=== PATIENT | female | born 1965 | race Hispanic/Latino ===

== ENCOUNTER 2018-10-29 09:17 | Outpatient (CLI) | payer OTHER ==
--- NOTE | 2018-10-30 09:28 | MMO ---
BILATERAL DIGITAL SCREENING MAMMOGRAMS: History: 53-year-old female presents for baseline digital screening mammography. No prior mammograms available for comparison. FINDINGS: Scattered fibroglandular changes are noted bilaterally. There is an occasional typically benign calci fication. There are some bilateral parenchymal density asymmetries. IMPRESSION: BIRADS category 2 - benign findings. Continue routine screening. POS: [facility]
== END 2018-10-29 09:18 | disposition home or self-care (01) ==
LOC: SCSMAMMO 09:17
PROVIDERS: ATTEND Family Medicine
DX: Z12.31 Encounter for screening mammogram for malignant neoplasm of breast (principal)
CPT/HCPCS: 77067

== ENCOUNTER 2018-11-18 17:37 | Inpatient (IN) | payer OTHER ==
[~2018-11-18 17:37] MED LIST: Iopamidol 370 76% 100 ML VIAL ONE
[2018-11-18] MEDS ORDERED: Morphine 4 MG/ML VIAL ONE (18:11)
[2018-11-18] MEDS ORDERED: Ondansetron PF 4 MG/2 ML Vial ONE (18:11)
[2018-11-18] MEDS ORDERED: diphenhydrAMINE 50 MG/ML VIAL ONE (18:24)
[2018-11-18 18:29] LABS: Pregnancy Test - Urine (BHCG) Negative (Negative)
[2018-11-18 18:30] LABS: Pregu Control Background? CLEAR/WHITE (CLR/WHITE); Pregu Control Bar Appear? YES (CONTROL BAR)
[2018-11-18 18:37] LABS: Bilirubin Small (Negative); Blood, Urine Negative (Negative); Clarity CLEAR (Clear); Glucose, Urine (Dipstick) Negative (Negative); Leukocyte Trace (Negative); Nitrite Negative (Negative); Protein, Urine (Dipstick) Negative (Neg-Trace); Specific Gravity, Urine 1.011 (1.002-1.036); pH, Urine 6.5 (5.0-9.0)
[2018-11-18 18:41] LABS: Hemoglobin 12.8 g/dL (12.0-16.0); Mean Corpuscular Volume 78.2 fL (78.0-98.0); Mean Platelet Volume 9.2 fL (7.4-10.4); Platelet Count 232 thou/uL (130-400); RBC Distribution Width 14.5 % (11.5-14.5); Red Blood Cell (RBC) Count 5.12 mill/uL (4.20-5.40); White Blood Cell (WBC) Count 7.6 thou/uL (4.8-10.8)
[2018-11-18 18:47] LABS: Band 36 % (5-11); Lymphocytes 7 % (21-51); MDiff Complete? YES; Metamyelocyte 1 % (0-0); Neutrophil 56 % (42-75); PLT Morphology Comment Appears Adequate; RBC Morphology Normal
[2018-11-18 18:51] LABS: ALT (SGPT) 19 U/L (8-55); Albumin 4.4 g/dL (3.5-5.0); Alkaline Phosphatase 91 U/L (40-150); BUN (Urea Nitrogen) 16 mg/dL (9.8-20.1); Bilirubin, Total 0.7 mg/dL (0.2-1.2); Calc. Creatinine Clearance 0 mL/min (70-130); Calcium 10.1 mg/dL (7.8-10.44); Carbon Dioxide 23 mmol/L (22-29); Chloride 98 mmol/L (98-107); Estimated GFR-MDRD 65; Glucose 108 mg/dL (70-105); Lipase 29 U/L (8-78); Sodium 133 mmol/L (136-145)
[2018-11-18 18:59] LABS: Bacteria/HPF 3+ HPF (None Seen); Hyaline Casts/LPF 0-3 HYALINE CAST LPF (0-3 Hyaline); Squamous Epithelial None Seen HPF (0-3); WBC/HPF 0-3 HPF (0-3)
[2018-11-18 19:09] LABS: RBC/HPF None Seen HPF (0-3)
--- NOTE | 2018-11-18 19:13 | CT ---
CT OF THE ABDOMEN AND PELVIS WITH IV CONTRAST 11/18/18 PROVIDED CLINICAL HISTORY: Abdominal pain. FINDINGS: No comparisons. The visualized lung bases are free of significant opacity. The liver, spleen, pancreas, kidneys and adrenal glands demonstrate no acute abnormality. There is co rtical volume loss involving the posterior aspect of the left kidney superiorly compatible with seque la of prior insults. Changes of cholecystectomy are seen. there is prominence of the intrahepatic and extrahepatic biliary system. There is conspicuous retained colonic fecal material and colonic gas present throughout the colon to the level of suture material at the region of the rectosigmoid junction. There is abrupt caliber otoole ge at the level of the suture line. Stool and gas are seen distal to the suture line. There is no sma ll bowel dilatation. There are occasional curvilinear areas of lucency that approximate the colon wal l but are felt to represent air trapped between stool and the bowel wall rather than pneumatosis. The re is no evidence for free intraperitoneal air. There is no evidence for portal venous gas. Vascular calcifications are seen. The osseous structures demonstrate no concerning lytic or blastic l esions. The lower lumbar spine degenerative changes are seen along with bilateral L5 pars defects. IMPRESSION: 1. Findings compatible with partial obstruction at the level of the rectosigmoid anastomosis, th e chronicity of which is not certain. 2. Intrahepatic and extrahepatic biliary ductal dilatation which may be on the basis of patient post cholecystectomy status. Correlation with laboratory values to exclude biliary obstructive change recommended. POS: [facility]
[2018-11-18 19:39] LABS: Anion Gap 17 mmol/L (10-20); Globulin 3.3 g/dL (2.4-3.5); Potassium 4.6 mmol/L (3.5-5.1); Protein, Total 7.7 g/dL (6.0-8.3)
[2018-11-18 19:40] LABS: AST (SGOT) 44 U/L (5-34)
[2018-11-18 21:08] VITALS: BMI 28.8
[2018-11-18] MEDS ORDERED: Ondansetron ODT 4 MG TAB SL PRN (21:08)
[2018-11-18] MEDS ORDERED: Ondansetron PF 4 MG/2 ML Vial IVP PRN ×2 (21:08→22:11)
[2018-11-18] MEDS ORDERED: Dextrose 5 % And 0.9 % NaCl 1,000 ML IV SCH (21:15)
[2018-11-18] MEDS ORDERED: Ondansetron ODT 4 MG TAB PO PRN (22:12)
[2018-11-18] MEDS ORDERED: Enoxaparin Sodium 40 MG/0.4 ML SYRINGE SC SCH (22:15)
[2018-11-18] MEDS ORDERED: Pantoprazole 40 MG VIAL IVP SCH (22:15)
[2018-11-18] MEDS: Ketorolac Tromethamine 30 MG/ML VIAL IVP PRN (22:51)
[2018-11-18] MEDS: Acetaminophen 1,000 MG in Premix Bag 1 BAG IVPB PRN (23:18)
[2018-11-19] MEDS ORDERED: Lactated Ringer's 1,000 ML IV SCH ×2 (04:00→05:00)
[2018-11-19] MEDS: Acetaminophen 1,000 MG in Premix Bag 1 BAG IVPB PRN (06:18)
[2018-11-19] MEDS: Ketorolac Tromethamine 30 MG/ML VIAL IVP PRN ×2 (06:18→15:57)
[2018-11-19] MEDS ORDERED: Fleet Enema 133 ML BOT PR SCH (07:30)
[2018-11-19] MEDS ORDERED: GoLYTELY 4,000 ml Bottle PO SCH (07:30)
--- NOTE | 2018-11-19 08:24 | RAD ---
CHEST ONE VIEW: ABDOMEN TWO VIEWS: HISTORY: A 53-year-old female with a history of large bowel obstruction. Follow up abdominal pain and vomitin g. FINDINGS: CHEST: No significant acute process in the chest. ABDOMEN: There is some residual contrast in the bladder from previous IV contrast for prior CT. The colon is much less distended than on the 11/18/2018 CT. There are postoperative changes in the left lower quadrant and in the right mid abdomen and right upper quadrant cholecystectomy changes. IMPRESSION: 1. Markedly less distended colon than on the prior CT. 2. No evidence of large or small bowel obstruction or other acute process. 3. Postoperative changes. POS: [facility]
[2018-11-19] MEDS ORDERED: Pantoprazole 40 MG VIAL IVP SCH (09:00)
[2018-11-19] MEDS: Sodium Chloride 0.9% 1,000 ML IV SCH ×2 (09:07→15:57)
--- NOTE | 2018-11-19 11:28 | HP ---
HISTORY OF PRESENT ILLNESS: Tayler Ramsay is a 53-year-old female, incarcerated for 19 months. Her home is in [place]. She has been in [place] for several months prior to being transferred to the [facility] for the last 3 months. While in [place], she experienced abdominal pain, distention, colonic obstruction, and underwent a colonoscopy revealing inability to pass the scope beyond the distal colon. Eight months ago, she underwent laparotomy, left colon resection for benign disease, nonmalignant, with colorectal anastomosis. She states that after the operation, she was having normal bowel movements and feeling well until yesterday when she experienced central abdominal pain. She presented to the emergency room. CAT scan of the abdomen and pelvis revealed a distended proximal colon to the colorectal anastomosis with stool in the proximal colon, but she does have stool and air distal to the colorectal anastomosis. The patient states her bowel function was normal prior to that. She states her blood pressure normally runs in the 90s to low 100s. She is on atenolol, lisinopril, and amlodipine. ALLERGIES: NONE. SOCIAL HISTORY: Tobacco, never; even prior to incarceration, never. Alcohol, none; even no drugs or alcohol prior to incarceration. PAST MEDICAL HISTORY: Hypertension, depression, and elevated cholesterol. PAST SURGICAL HISTORY: Sigmoid colon resection for benign disease, probably diverticular stricture. REVIEW OF SYSTEMS: Ten-point, noncontributory. FAMILY HISTORY: Noncontributory. PHYSICAL EXAMINATION: VITAL SIGNS: Height 5 feet 3 inches, weight 162 pounds, and BMI 28. Temperature 98.3, pulse 64, respiratory rate 19, and blood pressure 98/52. HEAD, EARS, EYES, NOSE, AND THROAT: Unremarkable. LUNGS: Clear to auscultation. CARDIAC: Regular rate and rhythm without murmur or gallop. ABDOMEN: Soft. Well-healed midline scar. No hernias. She does not seem to be tympanitic. She is not tender. EXTREMITIES: Unremarkable. LABORATORY DATA: White count 7, hemoglobin 12. Renal function, normal. Sodium 133, potassium 4.6. Liver function tests, normal. Review of her CAT scan reveals the above findings. ASSESSMENT AND PLAN: Constipation, possible colorectal anastomotic stricture, but there are stool and gas in the rectum, and she did pass stool yesterday. We would recommend enemas MUNIR this morning, magnesium citrate p.o., GI consultation, and repeat colonoscopy. We will await these results. I doubt operative intervention will be necessary. Job ID: [id number]
[2018-11-19] MEDS ORDERED: PROPOFOL 40 ML ONE (21:02)
[2018-11-19] MEDS ORDERED: Lidocaine 1% PF 5 ML VIAL ONE (21:38)
[2018-11-19] MEDS: Enoxaparin Sodium 40 MG/0.4 ML SYRINGE SC SCH (21:40)
--- NOTE | 2018-11-20 00:25 | CON ---
DATE OF CONSULTATION: HISTORY OF PRESENT ILLNESS: The patient is a 53-year-old female prisoner, who 8 months ago underwent a colon resection for benign disease. She reports she had a narrowing of her colon and it was removed. She had no symptoms after this until yesterday when she developed some left-sided abdominal pain. She denies any weight loss, any melena, hematochezia, or any other complaints. PAST MEDICAL HISTORY: Significant for hypertension. PAST SURGICAL HISTORY: Includes colon resection. ALLERGIES: NO KNOWN MEDICAL ALLERGIES. MEDICATIONS: 1. Tenormin 50 mg p.o. b.i.d. 2. Potassium chloride 10 mEq p.o. daily. 3. Omeprazole 40 mg p.o. daily. 4. Zestril 10 mg p.o. daily. 5. Hydrochlorothiazide 25 mg p.o. daily. 6. Prozac 20 mg p.o. daily. 7. Lipitor 10 mg p.o. daily. 8. Norvasc 10 mg p.o. daily. FAMILY HISTORY: Negative. REVIEW OF SYSTEMS: Ten-systems were reviewed and were negative except for above. PHYSICAL EXAMINATION: GENERAL: Shows a well-developed, well-nourished female, in no acute distress. VITAL SIGNS: Temperature is 99.0, pulse 67, respiratory rate 16, blood pressure 117/77. HEENT: Unremarkable. NECK: Supple. CHEST: Clear. CARDIOVASCULAR: Regular rate and rhythm. ABDOMEN: Soft, nontender without organomegaly or masses. Bowel sounds are present and normoactive. RECTAL: Deferred. EXTREMITIES: Normal. NEUROLOGIC: Nonfocal. LABORATORY DATA: Shows essentially normal CBC except for 36% bands. Chemistry shows sodium 133, glucose 108, AST 44. Abdominal pelvic CT shows findings compatible with partial obstruction at the level of the rectosigmoid anastomosis. Intrahepatic and extrahepatic biliary ductal dilatation. RECOMMENDATIONS: Colonoscopy with possible dilatation of anastomotic stricture. Job ID: [id number]
[2018-11-20] MEDS: Acetaminophen 1,000 MG in Premix Bag 1 BAG IVPB PRN (00:41)
[2018-11-20] MEDS: Sodium Chloride 0.9% 1,000 ML IV SCH ×2 (00:53→06:19)
--- NOTE | 2018-11-20 01:29 | OP ---
DATE OF PROCEDURE: 11/19/2018 PREOPERATIVE DIAGNOSIS: Colon obstruction. DESCRIPTION OF PROCEDURE: After informed consent was obtained, forward-viewing endoscope was inserted in the rectum after perianal inspection and rectal exam were normal. The anastomotic site was found. It was somewhat difficult and it represented a pinhole. The balloon was inserted into the pinhole orifice and dilated to 10 mm for 2 minutes. Balloon was then removed. A second balloon was used to 12 mm and eventually, a third balloon was used to 15 mm. The scope could not be passed through the orifice, but the orifice was much bigger and the lumen on the proximal side of the stricture could be seen. No abnormalities. No signs of any growth or malignancy was noted. ASSESSMENT: Anastomotic stricture-status post dilatation to 15 mm. RECOMMENDATIONS: 1. Begin full liquid diet. 2. Monitor progress. Job ID: [id number]
[2018-11-20] MEDS: Ketorolac Tromethamine 30 MG/ML VIAL IVP PRN (02:02)
--- NOTE | 2018-11-20 11:59 | PRG ---
DATE OF SERVICE: SUBJECTIVE: Tayler Ramsay underwent a colonoscopy by Dr. Weiner yesterday. She had a small opening in her colorectal anastomosis that he could not pass this. It was dilated. She has been started on a GI soft diet with MiraLAX. We will see how she tolerates this today. I expect she will be able to be discharged back to longterm tomorrow pending her clinical course today. Hopefully, we can avoid another operation. OBJECTIVE: VITAL SIGNS: Temperature 98.6 degrees, pulse 75, and blood pressure 99/66. LUNGS: Clear to auscultation. CARDIAC: Regular rate and rhythm without murmur or gallop. ABDOMEN: Soft and nontender. ASSESSMENT AND PLAN: She is on multiple antihypertensives and we will hold these with her relative low blood pressure. She had been complaining of the dizziness. We will hold her antihypertensive and hold her hydrochlorothiazide. Job ID: [id number]
[2018-11-20] MEDS: FLUoxetine HCl 20 MG CAP PO SCH (12:06)
[2018-11-20] MEDS: Atorvastatin Calcium 10 MG TAB PO SCH (12:06)
[2018-11-20] MEDS: Polyethylene Glycol 3350 17 GM Packet PO SCH ×2 (12:06→20:09)
--- NOTE | 2018-11-20 13:07 | PRG ---
DATE OF SERVICE: 11/20/2018 SUBJECTIVE: The patient is complaining mainly of headache. She had some nausea. No vomiting. She has had no real abdominal pain. OBJECTIVE: VITAL SIGNS: Temperature 98.6, pulse 75, respiratory rate 20, and blood pressure 99/66. CHEST: Clear. CARDIOVASCULAR: Regular rate and rhythm. ABDOMEN: Benign. LABORATORY DATA: No new laboratory. ASSESSMENT: Anastomotic stricture of the colon-status post balloon dilatation. RECOMMENDATIONS: 1. Feeding trial. 2. Dilate further as an outpatient or if the patient does not tolerate feeding trial, may need repeat dilation here in the hospital. 3. Dr. Harmon covering, call if needed. Job ID: [id number]
[2018-11-20] MEDS ORDERED: Acetaminophen 500 MG TAB PO PRN (15:37)
[2018-11-20] MEDS: Ibuprofen 600 MG TAB PO PRN (15:48)
[2018-11-20] MEDS: Enoxaparin Sodium 40 MG/0.4 ML SYRINGE SC SCH (20:08)
[2018-11-21] MEDS: Atorvastatin Calcium 10 MG TAB PO SCH (08:12)
[2018-11-21] MEDS: FLUoxetine HCl 20 MG CAP PO SCH (08:13)
[2018-11-21] MEDS: Ibuprofen 600 MG TAB PO PRN (08:14)
[2018-11-21] MEDS: Polyethylene Glycol 3350 17 GM Packet PO SCH ×2 (10:59→20:45)
[2018-11-21] MEDS ORDERED: Magnesium Citrate 300 ML BOT PO SCH (14:30)
--- NOTE | 2018-11-21 16:00 | RAD ---
ABDOMEN TWO VIEWS: HISTORY: Left upper quadrant abdominal pain. COMPARISON: None. FINDINGS: There is a suture in the left and right hemiabdomen. There are right upper quadrant surgical clips. No dilated air-filled loops of large or small bowel. There is also a suture in the deep pelvis. No free air in the hemidiaphragms on the upright view. No acute fracture or malalignment. IMPRESSION: No evidence for bowel obstruction. POS: [facility]
--- NOTE | 2018-11-21 18:06 | PRG ---
DATE OF SERVICE: 11/21/2018 GI FOLLOWUP SUBJECTIVE: Ms. Ramsay is feeling pretty good. She had some mild left upper quadrant pain. She does say she had no bowel movements for two days. She had an x-ray just a little while ago, which showed no evidence of obstruction. She is drinking magnesium citrate with no difficulty. OBJECTIVE: VITAL SIGNS: Temperature is 98, pulse 53, and blood pressure 123/83. ABDOMEN: Soft, nontender. Bowel sounds are positive. LABORATORY DATA: KUB reviewed. ASSESSMENT: Colon stricture of unclear etiology, possibly this is related to previous diverticular surgery, but the patient is unsure what surgery she had at all. She had this dilated with colonoscopy by Dr. Weiner the day before yesterday on the . A plain film today shows no signs of obstruction. She is going to get some laxative and I think if that is okay, she can go home and follow up in the office. If she does not do okay, she is instructed she may need surgery. Job ID: [id number]
[2018-11-21] MEDS: Enoxaparin Sodium 40 MG/0.4 ML SYRINGE SC SCH (20:46)
--- NOTE | 2018-11-22 00:14 | PRG ---
DATE OF SERVICE: 11/21/2018 SUBJECTIVE: Tayler Ramsay was seen earlier this morning. She is concerned because she has not had a bowel movement since her endoscopic dilatation for colorectal anastomotic stricture. She, however, has not had any nausea or vomiting. She is tolerating a regular diet. She did tolerate a GoLYTELY bowel prep prior to her endoscopic procedure. She has been passing flatus. She complained of some left upper abdominal pain. Abdominal x-rays obtained revealing a nonobstructive pattern. We do visualize air and stool in the rectum as well as in the proximal colon; there was no proximal colon dilatation. I did order magnesium citrate for her and an x-ray demonstrating the above findings. OBJECTIVE: LUNGS: Clear to auscultation. CARDIAC: Regular rate and rhythm without murmur or gallop. ABDOMEN: Soft and nontender. ASSESSMENT AND PLAN: Doing well. After endoscopic dilatation of colorectal anastomosis, she has not had a bowel movement, probably because she had a full bowel prep prior and has not eaten enough. We will order magnesium citrate. Anticipate discharge back to [facility] in the morning. She will need to follow up with Dr. Frandy Weiner for colorectal stricture. She may need another dilatation in the future. Job ID: [id number]
--- NOTE | 2018-11-22 04:58 | DIS ---
DATE OF ADMISSION: 11/18/2018 DATE OF DISCHARGE: 11/22/2018 DISCHARGE DIAGNOSES: 1. Colorectal stricture from previous sigmoid resection at another facility 8 months ago. Consultation, Dr. Frandy Weiner. 2. Colonoscopy with balloon dilatation of the stricture from a pinhole to 15 mm, the larger. Recommend followup with Dr. Frandy Weiner in 4 weeks for she may need another dilatation. CAT scan of the abdomen and pelvis revealing mild dilatation of the proximal colon to the colorectal stricture. HISTORY: A 53-year-old female, [facility] prisoner, has been in [place] for several months prior to being transferred to [facility] for the last 3 months. While in [place], she experienced abdominal pain, distention, colonic obstruction, and underwent colonoscopy revealing inability to pass the scope beyond the distal colorectal area. Eight months ago, she underwent laparotomy, left colon resection for benign disease, nonmalignant with colorectal anastomosis, this is per the patient, records not available. The patient states she is having normal bowel movements up until the day prior to this admission when she presented to the emergency room with abdominal pain. CAT scan revealed distended proximal colon to the colorectal anastomosis with stool in the proximal colon, but she did have stool in the rectum distal to the stricture. The patient states her blood pressure normally runs in the 90s. Her medication list includes three antihypertensives. These also include a diuretic. The patient has been complaining of dizziness for several weeks. During this hospitalization, antihypertensives were held. Eventually, her pressure elevated to 134/90. The patient tolerated a regular diet. She did complain of some left upper quadrant pain on 11/21 and x-rays obtained were unremarkable. She was given magnesium citrate and she felt better. She tolerated her diet for 24 hours and she has been discharged to the retirement. PLANS/RECOMMENDATIONS: To take a low-fiber soft diet. Follow up with Dr. Weiner in 3 to 4 weeks as she will need probable repeat dilatation to avoid surgery. She will follow up with Dr. Morales as needed. Job ID: [id number]
[2018-11-22 08:50] VITALS: BP 135/86; TEMP 98.5
[2018-11-22] MEDS: FLUoxetine HCl 20 MG CAP PO SCH (08:53)
[2018-11-22] MEDS: Atorvastatin Calcium 10 MG TAB PO SCH (08:53)
[2018-11-22] MEDS: Polyethylene Glycol 3350 17 GM Packet PO SCH (08:53)
--- NOTE | 2018-11-25 12:37 | EKG ---
Test Reason : Blood Pressure : / mmHG Vent. Rate : 067 BPM Atrial Rate : 067 BPM P-R Int : 144 ms QRS Dur : 080 ms QT Int : 446 ms P-R-T Axes : 033 032 025 degrees QTc Int : 471 ms Normal sinus rhythm Nonspecific ST abnormality Abnormal ECG Confirmed by AWILDA MACEDO ([id number]), associate editor DANA HICKMAN ([id number] on 11/25/2018 12:37:27 PM Referred By: Confirmed By:AWILDA MACEDO
== END 2018-11-22 10:06 | DRG 390 ==
LOC: ERS 17:37 → EEVIPCON 17:37 → SURG A 19:15
PROVIDERS: ADMIT Specialist; ATTEND Specialist
PROC: 0D7E8ZZ Dilation of Large Intestine, Via Natural or Artificial Opening Endoscopic (ICD-10-PCS; principal; 2018-11-19)
DX: K56.699 Other intestinal obstruction unspecified as to partial versus complete obstruction (principal); I10 Essential (primary) hypertension; F32.9 Major depressive disorder, single episode, unspecified; Z90.49 Acquired absence of other specified parts of digestive tract
CPT/HCPCS: 36415; 74019; 74022; 74177; 80053; 81003; 81015; 81025; 83690; 85025; 93005; 96361; 96374; 96375; C1726; C9113; J0131; J1200; J1650; J1885; J2001; J2270; J2405; J2704; Q0162

== ENCOUNTER 2018-12-04 16:16 | Emergency (ER) | payer OTHER ==
[2018-12-04] MEDS ORDERED: Iopamidol 370 76% 100 ML VIAL ONE (16:55)
[2018-12-04 17:54] LABS: #Lymphocytes 1.4 thou/uL (1.20-3.40); #Monocytes 0.3 thou/uL (0.11-0.59); #Neutrophils 3.1 thou/uL (1.40-6.50); %Basophils 0.6 % (0.0-1.0); %Eosinophils 0.7 % (0.0-10.0); %Monocytes 6.5 % (0.0-10.0); %Neutrophils 64.3 % (42.0-75.0); Hemoglobin 11.5 g/dL (12.0-16.0); Mean Corpuscular HGB CONC 31.8 g/dL (32.0-36.0); Mean Corpuscular Hemoglobin 24.4 pg (27.0-31.0); Mean Corpuscular Volume 76.9 fL (78.0-98.0); Mean Platelet Volume 8.9 fL (7.4-10.4); Platelet Count 299 thou/uL (130-400); RBC Distribution Width 14.7 % (11.5-14.5); Red Blood Cell (RBC) Count 4.72 mill/uL (4.20-5.40); White Blood Cell (WBC) Count 4.8 thou/uL (4.8-10.8)
[2018-12-04 18:11] LABS: BHCG - Serum Negative (NEGATIVE); Pregs Control Background? CLEAR/WHITE (CLR/WHITE); Pregs Control Bar Appear? YES (CONTROL BAR)
[2018-12-04 18:30] LABS: ALT (SGPT) 16 U/L (8-55); AST (SGOT) 24 U/L (5-34); Albumin 4.2 g/dL (3.5-5.0); Alkaline Phosphatase 88 U/L (40-150); Anion Gap 12 mmol/L (10-20); BUN (Urea Nitrogen) 14 mg/dL (9.8-20.1); Bilirubin, Total 0.4 mg/dL (0.2-1.2); Calc. Creatinine Clearance 0 mL/min (70-130); Calcium 9.6 mg/dL (7.8-10.44); Carbon Dioxide 28 mmol/L (22-29); Chloride 105 mmol/L (98-107); Estimated GFR-MDRD 56; Globulin 3.2 g/dL (2.4-3.5); Glucose 97 mg/dL (70-105); Lipase 32 U/L (8-78); Potassium 4.5 mmol/L (3.5-5.1); Protein, Total 7.4 g/dL (6.0-8.3); Sodium 140 mmol/L (136-145)
[2018-12-04] MEDS ORDERED: Ketorolac Tromethamine 30 MG/ML VIAL ONE (19:45)
--- NOTE | 2018-12-04 20:35 | CT ---
ABDOMEN AND PELVIC CT SCAN WITH IV CONTRAST: 12/04/18 HISTORY: 53-year-old female with history of abdominal pain. Prior colon surgery. Balloon dilatation for strict ure of large bowel. COMPARISON: 11/18/18. FINDINGS: The lung bases appear clear. Status post cholecystectomy with mild post cholecystectomy ductal dilata tion. Pancreas, spleen, adrenal glands are unremarkable. Stable scarring of the left upper kidney. Th ere is some scattered gas and fecal material throughout the colon and rectum. There is some evidence for some minimal colonic narrowing at the level of the anastomosis in the rectosigmoid. There is france nick, no significant distention of the colon with gas or fecal material or abnormal dilatation of the colon. Uterus appears unremarkable as does the urinary bladder. No abscess, adenopathy or abnormal fl uid collection. IMPRESSION: Postoperative changes with colonic anastomosis with some narrowing and some scattered gas and solid f ecal material throughout the colon and rectum but no evidence of abnormal colonic distention or dilat ation. This is markedly improved in appearance when compared to the prior 11/18/18 study. No evidence for significant new process. POS: [facility]
== END 2018-12-04 20:47 ==
LOC: ERS 16:16
DX: R10.11 Right upper quadrant pain (principal); D64.9 Anemia, unspecified; K21.9 Gastro-esophageal reflux disease without esophagitis; E78.5 Hyperlipidemia, unspecified; I10 Essential (primary) hypertension; F32.9 Major depressive disorder, single episode, unspecified; Z79.899 Other long term (current) drug therapy
CPT/HCPCS: 74177; 80053; 83690; 84703; 85025; 96374; J1885

== ENCOUNTER 2018-12-14 15:12 | Emergency (ER) | payer OTHER ==
[2018-12-14 16:04] LABS: Bilirubin Negative (Negative); Blood, Urine Negative (Negative); Clarity CLEAR (Clear); Glucose, Urine (Dipstick) Negative (Negative); Leukocyte Trace (Negative); Nitrite Negative (Negative); Protein, Urine (Dipstick) Negative (Neg-Trace); Specific Gravity, Urine 1.006 (1.002-1.036); Urobilinogen 0.2 mg/dL (0.2-1.0)
[2018-12-14 16:06] LABS: Bacteria/HPF 4+ HPF (None Seen); Hyaline Casts/LPF 0-3 HYALINE CAST LPF (0-3 Hyaline); RBC/HPF 0-3 HPF (0-3); Squamous Epithelial None Seen HPF (0-3); WBC/HPF 0-3 HPF (0-3)
[2018-12-14 16:21] LABS: #Lymphocytes 1.4 thou/uL (1.20-3.40); #Monocytes 0.3 thou/uL (0.11-0.59); #Neutrophils 2.4 thou/uL (1.40-6.50); %Basophils 0.7 % (0.0-1.0); %Eosinophils 0.5 % (0.0-10.0); %Lymphocytes 33.3 % (21.0-51.0); %Monocytes 7.9 % (0.0-10.0); %Neutrophils 57.5 % (42.0-75.0); Mean Corpuscular HGB CONC 32.8 g/dL (32.0-36.0); Mean Corpuscular Hemoglobin 25.3 pg (27.0-31.0); Mean Corpuscular Volume 77.1 fL (78.0-98.0); Mean Platelet Volume 9.2 fL (7.4-10.4); Platelet Count 235 thou/uL (130-400); RBC Distribution Width 14.6 % (11.5-14.5); Red Blood Cell (RBC) Count 5.16 mill/uL (4.20-5.40); White Blood Cell (WBC) Count 4.2 thou/uL (4.8-10.8)
[2018-12-14] MEDS ORDERED: Ondansetron PF 4 MG/2 ML Vial ONE (17:03)
[2018-12-14 17:48] LABS: ALT (SGPT) 16 U/L (8-55); AST (SGOT) 21 U/L (5-34); Albumin 4.4 g/dL (3.5-5.0); Alkaline Phosphatase 85 U/L (40-150); Anion Gap 15 mmol/L (10-20); BUN (Urea Nitrogen) 14 mg/dL (9.8-20.1); Bilirubin, Total 0.4 mg/dL (0.2-1.2); Calc. Creatinine Clearance 0 mL/min (70-130); Calcium 10.2 mg/dL (7.8-10.44); Carbon Dioxide 26 mmol/L (22-29); Chloride 100 mmol/L (98-107); Estimated GFR-MDRD 77; Globulin 2.9 g/dL (2.4-3.5); Glucose 94 mg/dL (70-105); Lipase 36 U/L (8-78); Potassium 3.9 mmol/L (3.5-5.1); Protein, Total 7.3 g/dL (6.0-8.3); Sodium 137 mmol/L (136-145)
--- NOTE | 2018-12-14 22:06 | CT ---
CT OF THE ABDOMEN AND PELVIS: Date: 12-14-18 Comparison: 12-04-18 History: Left lower quadrant pain, nausea and vomiting. Technique: Axial CT imaging at 5 mm intervals from the lung bases through the pubic symphysis with IV contrast. Coronal reformatted imaging obtained. FINDINGS: The visualized lung bases are unremarkable. Cholecystectomy clips are noted. There is no free intraperitoneal air or fluid. The liver, spleen, pancreas, adrenal glands, and kidneys demonstrate no acute findings. Focal areas o f cortical thinning are seen within the posterior upper pole left kidney, stable, evidence of prior i nsult. The lack of oral contrast limits assessment of the bowel. Colonic suture line is noted within the left lower quadrant/left hemipelvis, unchanged when compared to the prior examination. There is diverticulosis of the descending colon with no evidence for diverticulitis. There is no evid ence for bowel obstruction. The vascular structures appear patent with no lymphadenopathy evident wit hin the abdomen or pelvis. There are a few scattered areas of small bowel fecal material which can be seen on the basis of ileus or developing small bowel obstruction. However, no dilated or fluid filled small bowel is seen and t hus, the former is favored. IMPRESSION: 1. No convincing evidence for large or small bowel obstruction. 2. No free intraperitoneal air. Post-operative changes as detailed above. Additional incidental findi ngs. POS: [facility]
--- NOTE | 2018-12-20 13:27 | EKG ---
Test Reason : Blood Pressure : / mmHG Vent. Rate : 058 BPM Atrial Rate : 058 BPM P-R Int : 140 ms QRS Dur : 080 ms QT Int : 418 ms P-R-T Axes : 014 014 042 degrees QTc Int : 410 ms Sinus bradycardia Otherwise normal ECG Confirmed by IGNACIO LOPEZ ([id number]), advertising editor ULISES MASSEY ([id number]) on 12/20/2018 1:27:30 PM Referred By: Confirmed By:IGNACIO LOPEZ
== END 2018-12-14 21:40 | disposition home or self-care (01) ==
LOC: ERS 15:12
DX: R10.12 Left upper quadrant pain (principal); I10 Essential (primary) hypertension; D64.9 Anemia, unspecified; K21.9 Gastro-esophageal reflux disease without esophagitis; E78.5 Hyperlipidemia, unspecified; F32.9 Major depressive disorder, single episode, unspecified; Z79.899 Other long term (current) drug therapy
CPT/HCPCS: 36415; 74177; 80053; 81003; 81015; 83605; 83690; 85025; 93005; 96361; 96374; J2405

== ENCOUNTER 2019-02-10 11:28 | Day surgery (SDC) | payer OTHER ==
[2019-02-10] MEDS ORDERED: Fentanyl 100 MCG/2 ML VIAL ONE (13:08)
[2019-02-10] MEDS ORDERED: PROPOFOL 200 MG/20 ML VIAL ONE (13:40)
--- NOTE | 2019-02-10 14:43 | OP ---
DATE OF PROCEDURE: 02/10/2019 PREOPERATIVE DIAGNOSES: 1. Dysphagia. 2. Colonic stricture. 3. Abdominal pain. DESCRIPTION OF PROCEDURE: After informed consent was obtained, the patient was placed in the left lateral decubitus position. Anesthesia was administered per the Anesthesia Department. Forward-viewing endoscope was inserted into esophagus under direct visualization with ease and passed to the second portion of the duodenum with ease. Second portion of duodenum and duodenal bulb were normal. The pylorus, antrum, body, fundus, and cardia were normal. Retroflexion in the stomach was normal. The esophagus showed a narrowing at the gastroesophageal junction without noted erosions or other abnormalities. A 54-Maori Richey dilator was passed with little or no resistance. Re-insertion of endoscope showed complete resolution of the stricture and some mild post dilatation bleeding. ASSESSMENT: 1. GE junction stricture-status post Richey dilatation. 2. Otherwise normal esophagogastroduodenoscopy. RECOMMENDATIONS: 1. Repeat dilatations as needed. 2. Proceed with colonoscopy. DESCRIPTION OF PROCEDURE: After informed consent was obtained, the patient was placed in the left lateral decubitus position. Anesthesia was administered per the Anesthesia Department. Forward-viewing endoscope was inserted in the rectum after perianal inspection and rectal exam were normal and passed to the 15 cm, where anastomotic stricture was noted. The lumen was fairly tight, but did allow a balloon to be passed. An 18 mm TTS balloon was put across the stricture and inflated for 1 minute, deflated with good opening of the stricture. The colonoscope was then used to visualize the cecum. The cecum, ileocecal valve, and appendiceal orifice were normal. The proximal prep was excellent. The ascending, transverse, descending, sigmoid, and rectum were otherwise normal except for diffuse diverticulosis coli. ASSESSMENT: 1. Colocolonic anastomotic stricture-status post dilatation. 2. Diffuse diverticulosis coli. 3. Otherwise, normal colonoscopy. RECOMMENDATIONS: Follow up in the office in 3 weeks. Job ID: [id number]
--- NOTE | 2019-02-10 17:12 | CT ---
CT ABDOMEN AND PELVIS WITHOUT CONTRAST: HISTORY: Lower pelvic pain after colonoscopy. COMPARISON: CT abdomen and pelvis from 12/14/2018. FINDINGS: The lung bases are clear. No pericardial effusion. Moderate gaseous distention of the bowel. There is marked wall thickening at the level of the suture line of the more proximal sigmoid colon. At this area of thickened bowel, there appear to be gas bu bbles within very thin, attenuated diverticula. No free air under the transversalis fascia. Large, likely pedunculated, subserosal uterine fibroid. Distal ileum sutures appreciated. Noncontrast evaluation of the liver is unremarkable, as well as the spleen and pancreas. Cantu Addition e ffect of the extrahepatic biliary system from prior cholecystectomy. Bilateral L5 pars interarticularis defects with severe degenerative disease of the L5-S1 disk space, as well as grade 1 anterolisthesis. IMPRESSION: Marked wall thickening of the sigmoid colon, just proximal to the suture line, with multiple thin, ai r-filled, attenuated diverticula. No evidence for free intraperitoneal air. Recommend correlation w ith recent colonoscopy for evaluation of the wall thickening. This wall is thickened circumferential ly for a distance of approximately 7 [address] POS: [facility]
[2019-02-10] MEDS ORDERED: HYDROcodone/Acetaminophen 5/325 mg Tablet ONE (18:54)
== END 2019-02-10 19:15 ==
LOC: SDC 11:28
PROVIDERS: ATTEND Internal Medicine Gastroenterology
PROC: 0D7E8ZZ Dilation of Large Intestine, Via Natural or Artificial Opening Endoscopic (ICD-10-PCS; principal; 2019-02-10)
PROC: 0D747ZZ Dilation of Esophagogastric Junction, Via Natural or Artificial Opening (ICD-10-PCS; principal; 2019-02-10)
PROC: 0DJ08ZZ Inspection of Upper Intestinal Tract, Via Natural or Artificial Opening Endoscopic (ICD-10-PCS; principal; 2019-02-10)
DX: K22.2 Esophageal obstruction (principal); K57.30 Diverticulosis of large intestine without perforation or abscess without bleeding; K91.89 Other postprocedural complications and disorders of digestive system; Z79.899 Other long term (current) drug therapy
CPT/HCPCS: 74176; J2704; J3010

== ENCOUNTER 2021-10-02 08:08 | Outpatient (CLI) | payer OTHER | END 2021-10-02 08:09 | disposition home or self-care (01) | LOC: BICMRI 08:08 | PROVIDERS: ATTEND Family Medicine | DX: M25.562 Pain in left knee (principal); M22.42 Chondromalacia patellae, left knee ==

== ENCOUNTER 2022-01-08 08:29 | Day surgery (SDC) | payer OTHER ==
[2022-01-01 12:01] VITALS: BMI 32.1
[2022-01-08 09:52] LABS: SARS-CoV-2 NAA Rapid Test Not Detected (NotDetected)
[2022-01-08] MEDS ORDERED: Ketamine 50 MG/ML (10ML VIAL) ONE (10:35)
[2022-01-08] MEDS ORDERED: PROPOFOL 200 MG/20 ML VIAL ONE (10:40)
[2022-01-08] MEDS ORDERED: HYDROcodone/Acetaminophen 5/325 mg Tablet ONE (12:40)
== END 2022-01-08 13:00 | disposition home or self-care (01) ==
LOC: EEVIPCON 08:29 → SDC 08:29
PROVIDERS: ATTEND Internal Medicine
PROC: 0D758ZZ Dilation of Esophagus, Via Natural or Artificial Opening Endoscopic (ICD-10-PCS; principal; 2022-01-08)
PROC: 0D7E8ZZ Dilation of Large Intestine, Via Natural or Artificial Opening Endoscopic (ICD-10-PCS; principal; 2022-01-08)
PROC: 0DB78ZX Excision of Stomach, Pylorus, Via Natural or Artificial Opening Endoscopic, Diagnostic (ICD-10-PCS; principal; 2022-01-08)
DX: K56.699 Other intestinal obstruction unspecified as to partial versus complete obstruction (principal); K22.2 Esophageal obstruction; K29.70 Gastritis, unspecified, without bleeding; K57.30 Diverticulosis of large intestine without perforation or abscess without bleeding; I10 Essential (primary) hypertension; E78.00 Pure hypercholesterolemia, unspecified; Z79.899 Other long term (current) drug therapy; Z20.822 Contact with and (suspected) exposure to COVID-19
CPT/HCPCS: 88305; J2704; U0002

== ENCOUNTER 2022-02-28 16:30 | Inpatient (IN) | payer OTHER ==
[2022-02-28] MEDS ORDERED: Pantoprazole 40 MG VIAL ONE ×2 (17:04→21:50)
[2022-02-28 17:37] LABS: #Eosinphils 0.1 thou/uL (0.0-0.7); #Lymphocytes 1.8 thou/uL (1.20-3.40); #Monocytes 0.4 thou/uL (0.11-0.59); #Neutrophils 3.9 thou/uL (1.40-6.50); %Basophils 0.6 % (0.0-1.0); %Eosinophils 1.1 % (0.0-10.0); %Lymphocytes 28.9 % (21.0-51.0); %Monocytes 6.9 % (0.0-10.0); %Neutrophils 62.6 % (42.0-75.0); Hemoglobin 11.6 g/dL (12.0-16.0); Mean Corpuscular HGB CONC 32.9 g/dL (32.0-36.0); Mean Corpuscular Hemoglobin 28.6 pg (27.0-31.0); Mean Corpuscular Volume 87.1 fL (78.0-98.0); Platelet Count 221 thou/uL (130-400); RBC Distribution Width 13.1 % (11.5-14.5); Red Blood Cell (RBC) Count 4.05 mill/uL (4.20-5.40); White Blood Cell (WBC) Count 6.3 thou/uL (4.8-10.8)
[2022-02-28 17:57] LABS: ALT (SGPT) 11 U/L (8-55); AST (SGOT) 15 U/L (5-34); Albumin 4.2 g/dL (3.5-5.0); Alkaline Phosphatase 89 U/L (40-110); Anion Gap 15 mmol/L (10-20); BUN (Urea Nitrogen) 19 mg/dL (9.8-20.1); Bilirubin, Total 0.5 mg/dL (0.2-1.2); Calc. Creatinine Clearance 0 mL/min (70-130); Calcium 8.8 mg/dL (7.8-10.44); Carbon Dioxide 23 mmol/L (22-29); Chloride 105 mmol/L (98-107); Globulin 2.3 g/dL (2.4-3.5); Glucose 105 mg/dL (70-105); Potassium 4.1 mmol/L (3.5-5.1); Protein, Total 6.5 g/dL (6.0-8.3); Sodium 139 mmol/L (136-145)
[2022-02-28] MEDS ORDERED: Ondansetron PF 4 MG/2 ML Vial IVP PRN (18:50)
[2022-02-28] MEDS ORDERED: Melatonin 3 MG TAB PO PRN (18:59)
[2022-02-28] MEDS ORDERED: hydrALAZINE 20 MG/ML VIAL SLOW IVP PRN (19:16)
[2022-02-28] MEDS ORDERED: Acetaminophen 500 MG TAB ONE (19:23)
[2022-02-28 19:46] LABS: SARS-CoV-2 NAA Rapid Test Not Detected (NotDetected)
[2022-02-28] MEDS ORDERED: Famotidine/PF 20 mg/2ml Vial SLOW IVP SCH (21:00)
[2022-02-28] MEDS: Sodium Chloride 0.9% 1,000 ML IV SCH (21:58)
[2022-02-28 23:23] LABS: Hemoglobin 10.2 g/dL (12.0-16.0); Platelet Count 212 thou/uL (130-400)
[2022-03-01 04:50] LABS: #Eosinphils 0.1 thou/uL (0.0-0.7); #Lymphocytes 1.7 thou/uL (1.20-3.40); #Monocytes 0.5 thou/uL (0.11-0.59); #Neutrophils 2.5 thou/uL (1.40-6.50); %Basophils 0.4 % (0.0-1.0); %Eosinophils 1.1 % (0.0-10.0); %Lymphocytes 35.2 % (21.0-51.0); %Monocytes 9.7 % (0.0-10.0); %Neutrophils 53.5 % (42.0-75.0); Hemoglobin 9.9 g/dL (12.0-16.0); Mean Corpuscular HGB CONC 32.3 g/dL (32.0-36.0); Mean Corpuscular Volume 86.5 fL (78.0-98.0); Mean Platelet Volume 7.4 fL (7.4-10.4); Platelet Count 214 thou/uL (130-400); RBC Distribution Width 13.2 % (11.5-14.5); Red Blood Cell (RBC) Count 3.54 mill/uL (4.20-5.40); White Blood Cell (WBC) Count 4.7 thou/uL (4.8-10.8)
[2022-03-01 05:34] LABS: ALT (SGPT) 9 U/L (8-55); AST (SGOT) 12 U/L (5-34); Albumin 3.4 g/dL (3.5-5.0); Alkaline Phosphatase 70 U/L (40-110); Anion Gap 10 mmol/L (10-20); BUN (Urea Nitrogen) 14 mg/dL (9.8-20.1); Bilirubin, Total 0.7 mg/dL (0.2-1.2); Calc. Creatinine Clearance 118 mL/min (70-130); Calcium 8.4 mg/dL (7.8-10.44); Carbon Dioxide 24 mmol/L (22-29); Chloride 108 mmol/L (98-107); Globulin 2.2 g/dL (2.4-3.5); Glucose 96 mg/dL (70-105); Potassium 3.7 mmol/L (3.5-5.1); Protein, Total 5.6 g/dL (6.0-8.3); Sodium 138 mmol/L (136-145)
[2022-03-01] MEDS ORDERED: Pantoprazole 40 MG VIAL ONE (09:15)
[2022-03-01] MEDS: Acetaminophen 325 MG TAB PO PRN (09:19)
[2022-03-01] MEDS: Pantoprazole 40 MG VIAL IVP SCH ×2 (09:21→20:32)
[2022-03-01] MEDS ORDERED: Acetaminophen 325 MG TAB ONE (09:37)
[2022-03-01] MEDS: Sodium Chloride 0.9% 1,000 ML IV SCH ×2 (12:53→23:48)
[2022-03-01 13:13] VITALS: BMI 30.9
[2022-03-01] MEDS ORDERED: GoLYTELY 4,000 ml Bottle PO SCH (14:45)
[2022-03-02 06:43] LABS: #Eosinphils 0.1 thou/uL (0.0-0.7); #Lymphocytes 1.4 thou/uL (1.20-3.40); #Monocytes 0.3 thou/uL (0.11-0.59); %Basophils 0.9 % (0.0-1.0); %Lymphocytes 35.9 % (21.0-51.0); %Neutrophils 53.2 % (42.0-75.0); Mean Corpuscular HGB CONC 33.2 g/dL (32.0-36.0); Mean Corpuscular Hemoglobin 29.5 pg (27.0-31.0); Mean Corpuscular Volume 88.9 fL (78.0-98.0); Mean Platelet Volume 7.7 fL (7.4-10.4); Platelet Count 206 thou/uL (130-400); RBC Distribution Width 13.2 % (11.5-14.5); Red Blood Cell (RBC) Count 3.37 mill/uL (4.20-5.40); White Blood Cell (WBC) Count 3.8 thou/uL (4.8-10.8)
[2022-03-02 07:00] LABS: Anion Gap 9 mmol/L (10-20); BUN (Urea Nitrogen) 6 mg/dL (9.8-20.1); Calc. Creatinine Clearance 124 mL/min (70-130); Calcium 8.5 mg/dL (7.8-10.44); Carbon Dioxide 27 mmol/L (22-29); Chloride 108 mmol/L (98-107); Glucose 92 mg/dL (70-105); Potassium 3.4 mmol/L (3.5-5.1); Sodium 141 mmol/L (136-145)
[2022-03-02] MEDS: Pantoprazole 40 MG VIAL IVP SCH ×2 (07:49→20:07)
[2022-03-02] MEDS: Sodium Chloride 0.9% 1,000 ML IV SCH (12:14)
[2022-03-02] MEDS ORDERED: EPINEPHrine 1 MG/10 ML Abboject SYRINGE ONE (14:54)
[2022-03-02] MEDS ORDERED: Lidocaine 1% PF 5 ML VIAL ONE (14:54)
[2022-03-02] MEDS ORDERED: PROPOFOL 200 MG/20 ML VIAL ONE (14:54)
[2022-03-02] MEDS: Acetaminophen 325 MG TAB PO PRN (16:53)
[2022-03-03] MEDS: Sodium Chloride 0.9% 1,000 ML IV SCH (01:28)
[2022-03-03 06:00] LABS: #Eosinphils 0.1 thou/uL (0.0-0.7); #Lymphocytes 1.4 thou/uL (1.20-3.40); #Monocytes 0.4 thou/uL (0.11-0.59); #Neutrophils 2.2 thou/uL (1.40-6.50); %Basophils 0.3 % (0.0-1.0); %Eosinophils 2.6 % (0.0-10.0); %Lymphocytes 34.3 % (21.0-51.0); %Monocytes 9.5 % (0.0-10.0); %Neutrophils 53.5 % (42.0-75.0); Hemoglobin 10.1 g/dL (12.0-16.0); Mean Corpuscular HGB CONC 31.6 g/dL (32.0-36.0); Mean Corpuscular Hemoglobin 28.3 pg (27.0-31.0); Mean Corpuscular Volume 89.4 fL (78.0-98.0); Mean Platelet Volume 7.4 fL (7.4-10.4); Platelet Count 230 thou/uL (130-400); RBC Distribution Width 13.5 % (11.5-14.5); Red Blood Cell (RBC) Count 3.59 mill/uL (4.20-5.40); White Blood Cell (WBC) Count 4.1 thou/uL (4.8-10.8)
[2022-03-03 06:21] LABS: Anion Gap 12 mmol/L (10-20); BUN (Urea Nitrogen) 5 mg/dL (9.8-20.1); Calc. Creatinine Clearance 128 mL/min (70-130); Calcium 8.7 mg/dL (7.8-10.44); Carbon Dioxide 24 mmol/L (22-29); Chloride 106 mmol/L (98-107); Glucose 82 mg/dL (70-105); Potassium 3.5 mmol/L (3.5-5.1); Sodium 138 mmol/L (136-145)
[2022-03-03] MEDS: Pantoprazole 40 MG VIAL IVP SCH (08:17)
[2022-03-03] MEDS: Acetaminophen 325 MG TAB PO PRN (08:29)
[2022-03-03] MEDS ORDERED: Ondansetron ORAL SOLN. 4 MG/5 ML UDCUP PO PRN (10:07)
[2022-03-03] MEDS ORDERED: Ondansetron ODT 4 MG TAB PO PRN (10:08)
[2022-03-03 16:41] VITALS: BP 137/90; TEMP 98.2
== END 2022-03-03 17:02 | DRG 378 ==
LOC: ERS 16:30 → T4-B 18:14 → ERHOLD 18:23 → EEVIPCON 18:23 → OBSVTOIN 03-01 08:55 → T4-B 03-01 11:54
PROVIDERS: ADMIT Internal Medicine; ATTEND Internal Medicine
PROC: 0W3P8ZZ Control Bleeding in Gastrointestinal Tract, Via Natural or Artificial Opening Endoscopic (ICD-10-PCS; principal; 2022-03-02)
DX: K57.31 Diverticulosis of large intestine without perforation or abscess with bleeding (principal); D62 Acute posthemorrhagic anemia; I10 Essential (primary) hypertension; Z20.822 Contact with and (suspected) exposure to COVID-19; E78.5 Hyperlipidemia, unspecified; K21.9 Gastro-esophageal reflux disease without esophagitis; Z90.49 Acquired absence of other specified parts of digestive tract; Z79.899 Other long term (current) drug therapy
CPT/HCPCS: 36415; 74018; 74177; 80048; 80053; 82274; 85025; 86850; 86900; 86901; 96374; C1776; C9113; G0378; J0171; J2704; J7050; Q0162

== ENCOUNTER 2022-05-09 08:58 | Outpatient (CLI) | payer OTHER ==
[2022-05-09] MEDS ORDERED: Iopamidol-370 76% 500 ML 1 ML ONE (09:44)
== END 2022-05-09 08:59 | disposition home or self-care (01) ==
LOC: BICCT 08:58
PROVIDERS: ATTEND Family Medicine
DX: R10.9 Unspecified abdominal pain (principal)
CPT/HCPCS: 74160; Q9967